=== PATIENT | female | born 1980 | race Caucasian/White ===

== ENCOUNTER → 2017-12-16 | Outpatient (CLI) | payer OTHER ==
[~2017-12-16] VITALS: Ht 154.9 cm; Wt 117.2 kg
[2017-12-16 11:36] VITALS: BP_DIAS 88
[2017-12-16 11:54] VITALS: Ht 154.9 cm; Wt 117.2 kg
== END | disposition home or self-care (01) ==
LOC: C.NRED 08:34
PROVIDERS: ATTEND Family Medicine Hospice and Palliative Medicine
DX: R73.03 Prediabetes (principal)